=== PATIENT | female | born 1995 | race Hispanic/Latino ===

== ENCOUNTER 2022-07-02 13:26 | Emergency (ER) | payer OTHER ==
[~2022-07-02] VITALS: Ht 157.5 cm; Wt 52.8 kg
[2022-07-02 13:27] VITALS: BP 120/76
[2022-07-02 14:30] LABS: RSV AMPLIFICATION NEGATIVE (NEGATIVE)
[2022-07-02] MEDS ORDERED: ONDANSETRON 4MG ORAL DISINTEGRATING TAB PO ONE (17:55)
[2022-07-02] MEDS ORDERED: ONDA4TAB6 PO (18:03)
== END 2022-07-02 18:20 | disposition home or self-care (01) ==
LOC: M ED 13:26
DX: J09.X2 Influenza due to identified novel influenza A virus with other respiratory manifestations (principal); R53.1 Weakness; R05.9 Cough, unspecified